=== PATIENT | female | born 1985 | race Caucasian/White ===

== ENCOUNTER 2020-04-22 15:36 | Outpatient (REF) | payer BC, SELFPAY | END 2020-04-22 15:37 | disposition home or self-care (01) | LOC: HO.LAB 15:36 | PROVIDERS: Visit Provider Internal Medicine | DX: Z20.822 Contact with and (suspected) exposure to COVID-19 (principal) | CPT/HCPCS: 36415; C9803; U0003 ==

== ENCOUNTER 2020-04-26 06:56 | Outpatient (REF) | payer BC, SELFPAY | END 2020-04-26 06:57 | disposition home or self-care (01) | LOC: HO.LAB 06:56 | PROVIDERS: PCP Internal Medicine; Visit Provider Internal Medicine | DX: Z20.822 Contact with and (suspected) exposure to COVID-19 (principal) | CPT/HCPCS: 36415; C9803; U0003 ==

== ENCOUNTER 2021-05-01 10:14 | Outpatient (REF) | payer BC, SELFPAY ==
[2021-05-01 10:16] LABS: MANUAL DIFF FLAG NO
[2021-05-01 11:08] LABS: Basophils Absolute Auto 0.1 X10*3/uL (0.0-0.2); Basophils Percent Auto 0.7 % (0-2); Eosinophils Absolute Auto 0.2 X10*3/uL (0.0-0.4); Eosinophils Percent Auto 2.1 % (0-4); Hematocrit 41.8 % (37.0-47.0); Hemoglobin 14.2 g/dl (12.0-16.0); Imm Gran Abs Auto 0.01 X10*3/uL (0.00-0.03); Imm Gran Pct Auto 0.1 % (0.0-0.4); Lymphocytes Percent Auto 53.8 % (20-40); Mean Corpuscular Hemoglobin 30.7 pg (27.0-33.0); Mean Corpuscular Volume 90.3 fL (80.0-98.0); Mean Platelet Volume 9.9 fL (9.4-12.3); Monocytes Absolute Auto 0.7 X10*3/uL (0.1-1.2); Monocytes Percent Auto 9.1 % (2-11); Neutrophils Absolute Auto 2.6 x10*3/uL (2.0-8.3); Neutrophils Percent Auto 34.2 % (45-73); Platelet Count 344 X10*3/uL (160-400); Red Blood Count 4.63 X10*6/uL (4.20-5.50); Red Cell Distribution Width 12.2 % (11.0-16.0); White Blood Count 7.5 X10*3/uL (4.8-10.8)
[2021-05-01 11:14] LABS: Appearance Urine CLEAR; Color Urine YELLOW; Glucose Urine UA NEG (NEG); Leukocyte Esterase Urine NEG (NEG); Nitrite Urine NEG (NEG); Specific Gravity - Urine 1.025 (1.005-1.025); Urine Blood TRACE (NEG); Urine Ketones NEG (NEG); Urine Protein NEG (NEG-TRACE)
[2021-05-01 11:53] LABS: Bacteria Urine 1+ /LPF; Squamous Epithelial Cell Urine 1+ /LPF; WBC Urine 0-2 /HPF (0-4)
[2021-05-01 11:54] LABS: Mucus Urine 1+ /LPF
[2021-05-01 12:51] LABS: Alanine Aminotransferase 15 U/L (0-31); Albumin Level 3.4 g/dL (3.5-5.0); Alkaline Phosphatase 71 U/L (39-117); Anion Gap 14 (12-20); Aspartate Amino Transferase 12 U/L (5-31); Bilirubin Total 0.7 mg/dL (0.0-1.0); Blood Urea Nitrogen 6 mg/dL (9-16); Calcium 8.7 mg/dL (8.4-10.2); Carbon Dioxide 23 mmol/L (22-29); Chloride 105 mmol/L (96-108); Cholesterol 210 mg/dL; Estimated Glomerular Filt Rate > 60; Glucose Fasting 77 mg/dL (60-99); HDL Cholesterol 43 mg/dL; LDL Cholesterol Calculated 143 mg/dl; Potassium 3.4 mmol/L (3.3-5.1); Sodium 139 mmol/L (135-145); Total Protein 6.1 g/dL (6.5-8.0); Triglycerides 122 mg/dL
[2021-05-01 13:22] LABS: Free T4 (Free Thyroxine) 0.83 ng/dL (0.71-1.85)
== END 2021-05-01 10:15 | disposition home or self-care (01) ==
LOC: HO.LNP 10:14
PROVIDERS: PCP Internal Medicine; Visit Provider Internal Medicine
DX: Z00.00 Encounter for general adult medical examination without abnormal findings (principal); R59.1 Generalized enlarged lymph nodes; K58.1 Irritable bowel syndrome with constipation
CPT/HCPCS: 80053; 80061; 81001; 81003; 84439; 84443; 85025

== ENCOUNTER 2021-06-01 11:04 | Outpatient (REF) | payer BC, SELFPAY ==
[2021-06-01 12:39] LABS: TSH reflex Free T4 3.45 uIU/mL (0.32-4.0)
== END 2021-06-01 11:05 | disposition home or self-care (01) ==
LOC: HO.LNP 11:04
PROVIDERS: Visit Provider Internal Medicine
DX: E03.9 Hypothyroidism, unspecified (principal)
CPT/HCPCS: 84443

== ENCOUNTER 2022-02-22 10:34 | Outpatient (REF) | payer BC, SELFPAY ==
[2022-02-22 11:36] LABS: TSH reflex Free T4 3.14 uIU/mL (0.32-4.0)
== END 2022-02-22 10:35 | disposition home or self-care (01) ==
LOC: HO.LNP 10:34
PROVIDERS: Visit Provider Internal Medicine
DX: E03.9 Hypothyroidism, unspecified (principal)
CPT/HCPCS: 84443

== ENCOUNTER 2022-08-17 10:33 | Outpatient (REF) | payer BC, SELFPAY ==
[2022-08-17 10:36] LABS: MANUAL DIFF FLAG NO
[2022-08-17 10:50] LABS: Basophils Absolute Auto 0.1 X10*3/uL (0.0-0.2); Basophils Percent Auto 0.6 % (0-2); Eosinophils Absolute Auto 0.1 X10*3/uL (0.0-0.4); Eosinophils Percent Auto 1.6 % (0-4); Hematocrit 44.1 % (37.0-47.0); Imm Gran Abs Auto 0.02 X10*3/uL (0.00-0.03); Imm Gran Pct Auto 0.3 % (0.0-0.4); Lymphocytes Absolute Auto 3.7 X10*3/uL (1.2-4.9); Lymphocytes Percent Auto 47.5 % (20-40); Mean Corpuscular Hemoglobin 29.9 pg (27.0-33.0); Mean Corpuscular Volume 87.8 fL (80.0-98.0); Mean Platelet Volume 9.4 fL (9.4-12.3); Monocytes Absolute Auto 0.5 X10*3/uL (0.1-1.2); Monocytes Percent Auto 6.2 % (2-11); Neutrophils Absolute Auto 3.4 x10*3/uL (2.0-8.3); Neutrophils Percent Auto 43.8 % (45-73); Platelet Count 353 X10*3/uL (160-400); Red Blood Count 5.02 X10*6/uL (4.20-5.50); Red Cell Distribution Width 12.5 % (11.0-16.0); White Blood Count 7.7 X10*3/uL (4.8-10.8)
[2022-08-17 11:12] LABS: Appearance Urine Clear; Color Urine Yellow; Glucose Urine UA Negative (Negative); Leukocyte Esterase Urine Negative (Negative); Nitrite Urine Negative (Negative); PH 5.5 (5.0-9.0); Specific Gravity - Urine 1.015 (1.005-1.025); UMIC TRIGGER UACC YES; Urine Blood Trace (Negative); Urine Ketones Negative (Negative); Urine Protein Negative (Neg-Trace)
[2022-08-17 11:17] LABS: Alanine Aminotransferase 16 U/L (0-31); Albumin Level 3.5 g/dL (3.5-5.0); Alkaline Phosphatase 68 U/L (39-117); Anion Gap 11 (12-20); Aspartate Amino Transferase 11 U/L (5-31); Bilirubin Total 1.4 mg/dL (0.0-1.0); Blood Urea Nitrogen 6 mg/dL (9-16); Calcium 8.7 mg/dL (8.4-10.2); Carbon Dioxide 24 mmol/L (22-29); Chloride 108 mmol/L (96-108); Cholesterol 226 mg/dL; Estimated Glomerular Filt Rate > 60; Glucose Fasting 88 mg/dL (60-99); HDL Cholesterol 46 mg/dL; LDL Cholesterol Calculated 161 mg/dl; Potassium 3.8 mmol/L (3.3-5.1); Sodium 139 mmol/L (135-145); Total Protein 6.2 g/dL (6.5-8.0); Triglycerides 96 mg/dL
[2022-08-17 11:19] LABS: Bacteria Urine 1+ (None Seen); Hyaline Casts Urine 0-2 /LPF (0-2); WBC Urine 0-5 /HPF (0-5)
[2022-08-17 11:31] LABS: TSH reflex Free T4 4.84 uIU/mL (0.32-4.0)
== END 2022-08-17 10:34 | disposition home or self-care (01) ==
LOC: HO.LNP 10:33
PROVIDERS: PCP Internal Medicine; Visit Provider Internal Medicine
DX: Z00.00 Encounter for general adult medical examination without abnormal findings (principal); E03.9 Hypothyroidism, unspecified; D72.820 Lymphocytosis (symptomatic)
CPT/HCPCS: 80053; 80061; 81001; 84439; 84443; 85025

== ENCOUNTER 2022-08-21 15:13 | Outpatient (REF) | payer BC, SELFPAY ==
[2022-08-21 15:41] LABS: Appearance Urine Clear; Color Urine Yellow; Glucose Urine UA Negative (Negative); Leukocyte Esterase Urine Negative (Negative); Nitrite Urine Negative (Negative); PH 5.5 (5.0-9.0); UMIC TRIGGER UACC YES; Urine Blood Trace (Negative); Urine Ketones Negative (Negative); Urine Protein Negative (Neg-Trace)
[2022-08-21 15:46] LABS: Bacteria Urine None Seen (None Seen); Hyaline Casts Urine 0-2 /LPF (0-2); RBC Urine 0-2 /HPF (0-2); Squamous Epithelial Cell Urine 0-2 /HPF (0-2); WBC Urine 0-5 /HPF (0-5)
== END 2022-08-21 15:14 | disposition home or self-care (01) ==
LOC: HO.LNP 15:13
PROVIDERS: Visit Provider Internal Medicine
DX: R31.9 Hematuria, unspecified (principal)
CPT/HCPCS: 81001

== ENCOUNTER 2022-11-09 13:22 | Outpatient (REF) | payer BC, SELFPAY ==
[2022-11-09 15:16] LABS: TSH reflex Free T4 1.95 uIU/mL (0.32-4.0)
== END 2022-11-09 13:23 | disposition home or self-care (01) ==
LOC: HO.LNP 13:22
PROVIDERS: Visit Provider Internal Medicine
DX: E03.9 Hypothyroidism, unspecified (principal)
CPT/HCPCS: 84443

== ENCOUNTER 2023-02-09 17:52 | Emergency (ER) | payer BC, SELFPAY ==
--- NOTE | ~2023-02-09 | CT_ITS ---
EXAMINATION: CT HEAD WITHOUT CONTRAST CLINICAL INFORMATION: Headache unequal pupils COMPARISON: CT scan of the head July 2012. Report only. TECHNIQUE: Contiguous axial imaging was performed from the skull base to vertex without intravenous administration of contrast. This CT examination was performed using dose optimization techniques as appropriate, variously including the following: *Automated exposure control *Adjustment of mA and/or kV according to patient size (this includes techniques or standardized protocols for targeted exams where dose is matched to indication/reason for exam; i.e. extremities or head) *Use of iterative reconstruction technique DLP: 620 mGy-cm FINDINGS: There is no mass hemorrhage or cerebral edema. The ventricles and basal cisterns are normal. Soft tissues: Normal. Bone: There is a osseous excrescence along the left frontal bone measuring up to 9 mm transverse and 3 mm AP and 10 mm craniocaudal. This has the appearance of an osteoma. Sinuses clear. Mastoid air cells clear. CT/CT head/brain wo IV con IMPRESSION: 1. No acute intracranial pathology. 2. Osteoma of the left frontal bone.
--- NOTE | ~2023-02-09 | CT_ITS ---
EXAMINATION: CT ANGIOGRAM NECK CT ANGIOGRAM HEAD CLINICAL INFORMATION: Headache. Unequal pupils. COMPARISON: None available. TECHNIQUE: The degree of stenosis determined by NASCET criteria. This CT examination was performed using dose optimization techniques as appropriate, variously including the following: *Automated exposure control *Adjustment of mA and/or kV according to patient size (this includes techniques or standardized protocols for targeted exams where dose is matched to indication/reason for exam; i.e. extremities or head) *Use of iterative reconstruction technique DLP: 1429 mGy-cm FINDINGS: The visualized aortic arch and branch vessels are within normal limits. The carotid, internal carotid and external carotid arteries are patent. The vertebral arteries are codominant. The vertebral arteries are patent. The intracranial internal carotid arteries, middle and anterior cerebral arteries as well as posterior cerebral arteries are patent. No evidence for aneurysm. The visualized upper lung muhammad are clear. The osseous structures are unremarkable. CT/CT angio head neck IMPRESSION: No significant abnormality.
[2023-02-09 17:58] VITALS: BP 126/80; PULSE 90; RESP 16; TEMP 36; O2SAT 97; BMI 28.3
--- NOTE | 2023-02-09 18:01 | ED_ITS ---
HPI - General Adult General Chief complaint: Headache Stated complaint: Headache, allergic reaction (?) Time Seen by Provider: 02/09/23 18:16 Related Data Allergies Allergy/AdvReac Type Severity Reaction Status Date / Time No Known Allergies Allergy Verified 02/09/23 17:58 [facility] Past Medical History Medical History (Updated 02/09/23 @ 18:30 by Lissa Peralta MD) ADHD Hypothyroidism Social History Social History Smoked in Last 30 Days: No Use of substances other than those prescribed or required for medical reasons: No Advance Directives: No Advance Directives Information Provided: No Physical Exam ED Vital Signs: Vital Signs - 24 hr 02/09/23 17:58 02/09/23 19:04 02/09/23 22:58 Temperature 96.8 F 98.4 F 98.3 F Pulse Rate 90 84 Respiratory Rate 16 16 14 Blood Pressure 126/80 125/82 125/86 Pulse Oximetry 97 98 Oxygen Delivery Method Room Air Room Air Room Air 02/10/23 01:30 EDT Temperature 98.3 F Pulse Rate 66 Respiratory Rate 14 Blood Pressure 115/77 Pulse Oximetry 97 Oxygen Delivery Method Room Air BMI result Body Mass Index 28.3 Course Course Course Narrative: Patient complains of headache as well as noticing that her pupils are not equal for past several days She does feel some occasional chest tightness, she is being treated with prednisone and Zithromax for a bronchitis At home she has had no chest pain no vomiting no nausea Pupils are reactive but are obviously not equal Head CT COVID testing and basic labs ordered This is rapid medical exam and triage pending full ER evaluation by provider with history and physical review of any results and disposition Medications Administered Discontinued Medications Generic Name Dose Route Start Last Admin Trade Name Triny PRN Reason Stop Dose Admin Iohexol 100 ml 02/09/23 22:41 02/09/23 22:42 Iohexol 350 Mg/Ml 100 Ml Infus..Btl IV 02/09/23 22:42 70 ml ONCE ONE Administration Medical Decision Making Lab Data 02/09/23 18:14 02/09/23 18:14 Labs: Lab Results 02/09/23 02/10/23 Range/Units 18:14 00:24 WBC 9.5 (4.8-10.8) X10*3/uL RBC 5.00 (4.20-5.50) X10*6/uL Hgb 15.0 (12.0-16.0) g/dl Hct 43.4 (37.0-47.0) % MCV 86.8 (80.0-98.0) fL MCH 30.0 (27.0-33.0) pg MCHC 34.6 (31.0-35.0) g/dl RDW 12.1 (11.0-16.0) % Plt Count 381 (160-400) X10*3/uL MPV 8.7 L (9.4-12.3) fL Immature Gran % (Auto) 0.9 H (0.0-0.4) % Neut % (Auto) 81.0 H (45-73) % Lymph % (Auto) 16.6 L (20-40) % [place] % (Auto) 1.3 L (2-11) % Eos % (Auto) 0.0 (0-4) % Baso % (Auto) 0.2 (0-2) % Lymph # (Auto) 1.6 (1.2-4.9) X10*3/uL [place] # (Auto) 0.1 (0.1-1.2) X10*3/uL Eos # (Auto) 0.0 (0.0-0.4) X10*3/uL Baso # (Auto) 0.0 (0.0-0.2) X10*3/uL Abs Immat Gran (auto) 0.09 H (0.00-0.03) X10*3/uL Absolute Neuts (auto) 7.7 (2.0-8.3) x10*3/uL Absolute Nucleated RBC 0.000 (0.0-0.012) X10*3/uL Nucleated RBC % (auto) 0.0 (0.0-0.2) /100WBC PT 12.3 (11.1-13.3) SEC INR 1.0 (0.9-1.1) Sodium 139 (135-145) mmol/L Potassium 4.4 (3.3-5.1) mmol/L Chloride 104 (96-108) mmol/L Carbon Dioxide 26 (22-29) mmol/L Anion Gap 13 (12-20) BUN 9 (9-16) mg/dL Creatinine 0.91 (0.5-1.4) mg/dL Estim Creat Clear Calc 77.7 Estimated GFR > 60 Random Glucose 155 H (60-115) mg/dL Calcium 9.1 (8.4-10.2) mg/dL Urine Test NEGATIVE (NEGATIVE) Urine Opiates Screen Not Detected (Not Detect) Urine Fentanyl Screen Not Detected (Not Detect) Ur Barbiturates Screen Not Detected (Not Detect) Ur Phencyclidine Scrn Not Detected (Not Detect) Ur Amphetamines Screen POSITIVE H (Not Detect) U Benzodiazepines Scrn Not Detected (Not Detect) Urine Cocaine Screen Not Detected (Not Detect) U Marijuana (THC) Screen POSITIVE H (Not Detect)
[2023-02-09 18:18] LABS: MANUAL DIFF FLAG NO
[2023-02-09 18:20] LABS: Basophils Percent Auto 0.2 % (0-2); Hematocrit 43.4 % (37.0-47.0); Imm Gran Abs Auto 0.09 X10*3/uL (0.00-0.03); Imm Gran Pct Auto 0.9 % (0.0-0.4); Lymphocytes Absolute Auto 1.6 X10*3/uL (1.2-4.9); Lymphocytes Percent Auto 16.6 % (20-40); Mean Corpuscular HGB Conc 34.6 g/dl (31.0-35.0); Mean Corpuscular Volume 86.8 fL (80.0-98.0); Mean Platelet Volume 8.7 fL (9.4-12.3); Monocytes Absolute Auto 0.1 X10*3/uL (0.1-1.2); Monocytes Percent Auto 1.3 % (2-11); Neutrophils Absolute Auto 7.7 x10*3/uL (2.0-8.3); Platelet Count 381 X10*3/uL (160-400); Red Cell Distribution Width 12.1 % (11.0-16.0); White Blood Count 9.5 X10*3/uL (4.8-10.8)
--- NOTE | 2023-02-09 18:24 | ED.HA ---
HPI - Headache General Chief Complaint: Headache Stated Complaint: Headache, allergic reaction (?) Time Seen by Provider: 02/09/23 18:16 Source: patient Mode of arrival: ambulatory Limitations: no limitations History of Present Illness HPI Narrative: Patient comes to the emergency room complaining of unequal pupils. Patient states that for about 3 weeks, she has been having stuffy nose, sinus pain, patient has been on a Z-Paolo and prednisone for about 5 days. Patient states that she went to work today, she did have a bit of a headache. Took Advil, did not think much of it. At work, the patient's co-workers told the patient that she had unequal pupils. Patient noted that the right pupil is significantly larger than the left pupil, patient denies any visual changes, patient came immediately to the emergency room. Related Data Allergies Allergy/AdvReac Type Severity Reaction Status Date / Time No Known Allergies Allergy Verified 02/09/23 17:58 Review of Systems Review of Systems: Constitutional : No Weight loss, No Fever, No Chills, No Night Sweats, No Fatigue, No Malaise ENT/Mouth : No Hearing loss, No Ear Pain, No Nasal Congestion, No Sinus Pain, No Hoarseness, No sore throat, No Rhinorrhea, No Swallowing Difficulty Eyes: Complaining of unequal pupil size, No Eye Pain, No Swelling, No Redness, No Foreign Body, No Discharge, No Vision Changes Cardiovascular : No Chest Pain, No SOB, No Dyspnea on Exertion, No Orthopnea, No Edema, No Palpitations Respiratory : No Cough, No Sputum, No Wheezing, No Smoke Exposure, No Dyspnea Gastrointestinal : No Nausea, No Vomiting, No Diarrhea, No Constipation, No abdominal Pain, No Hematochezia, No Melena Genitourinary : no irregular bleeding, No Dysuria, No Urinary Frequency, No Hematuria, No Urinary Incontinence, No Urgency, No Flank Pain, No Urinary Flow Changes, No Hesitancy Musculoskeletal : No joint pain, No Myalgias, No Joint Swelling Skin : No Skin Lesions, No rash Neuro : No Weakness, No Numbness, No Paresthesias, No Loss of Consciousness, No Dizziness, complaining of a headache Psych : No Anxiety/Panic, No Depression, No SI/HI/AH/VH, No Social Issues, Heme/Lymph: No Bruising, No Bleeding,No Lymphadenopathy Endocrine : No Polyuria, No Polydipsia, No Temperature Intolerance [facility] Past Medical History Medical History (Updated 02/10/23 @ 01:58 EDT by Lissa Peralta MD) ADHD Hypothyroidism Social History Social History Smoked in Last 30 Days: No Use of substances other than those prescribed or required for medical reasons: No Advance Directives: No Advance Directives Information Provided: No Physical Exam Vital Signs: Vital Signs: Last Vital Signs Temp 98.3 F 02/10/23 01:30 ED T Pulse 66 02/10/23 01:30 ED T Resp 14 02/10/23 01:30 ED T BP 115/77 02/10/23 01:30 ED T Pulse Ox 97 02/10/23 01:30 ED T O2 Del Method Room Air 02/10/23 01:30 ED T BMI result Body Mass Index 28.3 Const: Other: Appearance: Alert. Oriented X3. No acute distress. Eyes: Right pupil is 6 mm, left pupil 2 mm. Both pupils are reactive to light, patient has appropriate consensual pupillary reflex, no ptosis bilaterally ENT: Pharynx normal. Neck: Normal inspection. Neck supple. No lymph nodes noted. No crepitus CVS: Normal heart rate and rhythm. Pulses normal. Normal S1 and S2 Respiratory: No respiratory distress. Breath sounds normal. No Wheezing. No rales Abdomen: Soft and nontender. No rigidity. No distention. Skin: Skin warm and dry. Normal skin color. Normal skin turgor. Extremities: No lower extremity edema. No Lacerations. No Rash Neuro: Oriented X 3. No motor deficit. No sensory deficit. Moving all extremities. No slurred speech. CN 2 through 12 grossly intact Psych: calm, cooperative, normal affect Medications Administered Discontinued Medications Generic Name Dose Route Start Last Admin Trade Name Phillq PRN Reason Stop Dose Admin Iohexol 100 ml 02/09/23 22:41 02/09/23 22:42 Iohexol 350 Mg/Ml 100 Ml Infus..Btl IV 02/09/23 22:42 70 ml ONCE ONE Administration Medical Decision Making Medical Decision Making MDM Narrative: -interpretation of CT scan of the head: No intracranial bleed -I discussed the CT scan report with Dr. Salcedo from Neurology. Patient does not have ptosis,, no obvious history of ocular trauma, no topical medications no use of drugs, no other neurological deficits. When anisocoria presented, the patient was having a headache. At this time, patient does not have a headache, but still has unequal pupils. Recommendations by Dr. Salcedo: CT angiogram of brain and neck to rule out aneurysm. If CTA is normal, patient can follow up with Neurology and Ophthalmology. -interpretation of CTA of head and neck, no obvious obstruction or aneurysms -radiology report of CT is reassuring -I discussed the CTA results with the patient and her family, patient will follow-up as mentioned above with both Neurology and Ophthalmology -patient states that only thing that she can remember that is new is using prednisone with a Z-Paolo. Patient has had see PAC in the past but never prednisone. Patient will discontinue using prednisone -by the time the patient was discharged, all other vitals stable. The anisocoria is less obvious than on arrival. Right pupil is about 4 mm, left pupil 2 mm, both reactive to light, normal consensual pupillary reflex Differential Diagnosis Differential Diagnoses: The differential diagnosis associated with the presentation includes (Aneurysm, brain mass, pharmacologic anisocoria, Yeyo syndrome) Admission/Observation Consideration of admission/observation: Escalation of care including admission/observation considered (Given the patient's presentation, admission/transfer was considered) Consult Healthcare Provider Management of the patient was discussed with: [employer] Lab Data MDM Lab Attestation statement: I reviewed the patient's lab results. 02/09/23 18:14 02/09/23 18:14 Labs: Lab Results 02/09/23 02/10/23 Range/Units 18:14 00:24 WBC 9.5 (4.8-10.8) X10*3/uL RBC 5.00 (4.20-5.50) X10*6/uL Hgb 15.0 (12.0-16.0) g/dl Hct 43.4 (37.0-47.0) % MCV 86.8 (80.0-98.0) fL MCH 30.0 (27.0-33.0) pg MCHC 34.6 (31.0-35.0) g/dl RDW 12.1 (11.0-16.0) % Plt Count 381 (160-400) X10*3/uL MPV 8.7 L (9.4-12.3) fL Immature Gran % (Auto) 0.9 H (0.0-0.4) % Neut % (Auto) 81.0 H (45-73) % Lymph % (Auto) 16.6 L (20-40) % [place] % (Auto) 1.3 L (2-11) % Eos % (Auto) 0.0 (0-4) % Baso % (Auto) 0.2 (0-2) % Lymph # (Auto) 1.6 (1.2-4.9) X10*3/uL [place] # (Auto) 0.1 (0.1-1.2) X10*3/uL Eos # (Auto) 0.0 (0.0-0.4) X10*3/uL Baso # (Auto) 0.0 (0.0-0.2) X10*3/uL Abs Immat Gran (auto) 0.09 H (0.00-0.03) X10*3/uL Absolute Neuts (auto) 7.7 (2.0-8.3) x10*3/uL Absolute Nucleated RBC 0.000 (0.0-0.012) X10*3/uL Nucleated RBC % (auto) 0.0 (0.0-0.2) /100WBC PT 12.3 (11.1-13.3) SEC INR 1.0 (0.9-1.1) Sodium 139 (135-145) mmol/L Potassium 4.4 (3.3-5.1) mmol/L Chloride 104 (96-108) mmol/L Carbon Dioxide 26 (22-29) mmol/L Anion Gap 13 (12-20) BUN 9 (9-16) mg/dL Creatinine 0.91 (0.5-1.4) mg/dL Estim Creat Clear Calc 77.7 Estimated GFR > 60 Random Glucose 155 H (60-115) mg/dL Calcium 9.1 (8.4-10.2) mg/dL Urine Test NEGATIVE (NEGATIVE) Urine Opiates Screen Not Detected (Not Detect) Urine Fentanyl Screen Not Detected (Not Detect) Ur Barbiturates Screen Not Detected (Not Detect) Ur Phencyclidine Scrn Not Detected (Not Detect) Ur Amphetamines Screen POSITIVE H (Not Detect) U Benzodiazepines Scrn Not Detected (Not Detect) Urine Cocaine Screen Not Detected (Not Detect) U Marijuana (THC) Screen POSITIVE H (Not Detect) Discharge Plan Discharge Clinical Impression: Headache, Anisocoria Patient Disposition: Home, Self-Care Instructions: Acute Headache (ED) Additional Instructions: Please follow-up with your primary care physician tomorrow. If you have any worsening or new symptoms, please return to the emergency room or call 911 Referrals: Israel Emery [Physician] - 02/11/23 7:30 am Dena Salcedo MD [Physician] - 02/11/23
[2023-02-09 18:25] LABS: Prothrombin Time 12.3 SEC (11.1-13.3)
[2023-02-09 18:32] LABS: Anion Gap 13 (12-20); Blood Urea Nitrogen 9 mg/dL (9-16); Calcium 9.1 mg/dL (8.4-10.2); Carbon Dioxide 26 mmol/L (22-29); Chloride 104 mmol/L (96-108); Creatinine Clr Calc Pharmacy 77.7; Estimated Glomerular Filt Rate > 60; Glucose Random 155 mg/dL (60-115); Potassium 4.4 mmol/L (3.3-5.1); Sodium 139 mmol/L (135-145)
[2023-02-09 19:04] VITALS: BP 125/82; PULSE 84; RESP 16; TEMP 36.9; O2SAT 98
--- NOTE | 2023-02-09 19:30 | PC.NURSE ---
this rn assumed care of pt at 1900. pt family member at bedside at this time. pt calm and cooperative
[2023-02-09] MEDS: iohexoL 350 MG/ML 100 ML INFUS..BTL IV (22:42)
[2023-02-09 22:58] VITALS: BP 125/86; RESP 14; TEMP 36.8
[2023-02-10 00:41] LABS: Amphetamine Screen Urine POSITIVE (Not Detect); Barbiturates, Urine Not Detected (Not Detect); Benzodiazepines Screen Urine Not Detected (Not Detect); Cannabinoid Screen Urine POSITIVE (Not Detect); Cocaine Screen Urine Not Detected (Not Detect); Fentanyl, urine Not Detected (Not Detect); Opiate Screen Urine Not Detected (Not Detect); Phencyclidine Screen Urine Not Detected (Not Detect)
[2023-02-10 00:50] LABS: UPreg QC Valid YES; Urine Pregnancy NEGATIVE (NEGATIVE)
--- NOTE | 2023-02-10 01:09 | PC.NURSE ---
pt and family member verbalizing frustration regarding length of stay in emergency dept. pt remains calm and cooperative though visitor noted to be frustrated due to the delay in results from CTA. per dr staples radiologist from [facility] reading will take 2-4hrs from time of scan. this rn made pt aware of this. pt remains frustrated though calm pt provided with bo schulz at this time
--- NOTE | 2023-02-10 01:16 | PC.NURSE ---
pt ambulatory at discharge. iv removed at discharge. pt provided with discharge packet, pt verbalized understanding of discharge plan
[2023-02-10 01:30] VITALS: BP 115/77; PULSE 66; RESP 14; TEMP 36.8; O2SAT 97
== END 2023-02-10 01:18 | disposition home or self-care (01) ==
PROVIDERS: Physician Assistant Medical; Emergency Provider Emergency Medicine
DX: R51.9 Headache, unspecified (principal); H57.02 Anisocoria; F90.9 Attention-deficit hyperactivity disorder, unspecified type; E03.9 Hypothyroidism, unspecified; Z79.899 Other long term (current) drug therapy
CPT/HCPCS: 36415; 70450; 70496; 70498; 80048; 80307; 81025; 85025; 85610; 99284; Q9967

== ENCOUNTER 2023-02-14 08:55 | Outpatient (REF) | payer BC, SELFPAY ==
--- NOTE | ~2023-02-14 | XR_ITS ---
EXAMINATION: XR CHEST CLINICAL INFORMATION: Anisocoria COMPARISON: None available. TECHNIQUE: 2 views of the chest were obtained. 9:05 AM FINDINGS: No significant abnormality is noted involving the heart, lungs, mediastinum, bony thorax or soft tissues. XR/XR chest 2V IMPRESSION: Unremarkable examination.
== END 2023-02-14 08:56 | disposition home or self-care (01) ==
LOC: HO.XRAY 08:55
PROVIDERS: PCP Internal Medicine; Visit Provider Internal Medicine
DX: H57.02 Anisocoria (principal)
CPT/HCPCS: 71046

== ENCOUNTER 2023-05-06 10:41 | Outpatient (REF) | payer BC, SELFPAY ==
[2023-05-06 13:19] LABS: TSH reflex Free T4 1.75 uIU/mL (0.32-4.0)
== END 2023-05-06 10:42 | disposition home or self-care (01) ==
LOC: HO.LNP 10:41
PROVIDERS: Visit Provider Internal Medicine
DX: E03.9 Hypothyroidism, unspecified (principal)
CPT/HCPCS: 84443

== ENCOUNTER 2023-08-19 10:44 | Outpatient (REF) | payer BC, SELFPAY ==
[2023-08-19 10:47] LABS: MANUAL DIFF FLAG NO
[2023-08-19 11:06] LABS: Basophils Absolute Auto 0.1 X10*3/uL (0.0-0.2); Basophils Percent Auto 0.5 % (0-2); Eosinophils Absolute Auto 0.2 X10*3/uL (0.0-0.4); Eosinophils Percent Auto 2.2 % (0-4); Hematocrit 42.7 % (37.0-47.0); Hemoglobin 14.6 g/dl (12.0-16.0); Imm Gran Abs Auto 0.03 X10*3/uL (0.00-0.03); Imm Gran Pct Auto 0.3 % (0.0-0.4); Lymphocytes Absolute Auto 4.3 X10*3/uL (1.2-4.9); Lymphocytes Percent Auto 47.1 % (20-40); Mean Corpuscular HGB Conc 34.2 g/dl (31.0-35.0); Mean Corpuscular Hemoglobin 31.3 pg (27.0-33.0); Mean Corpuscular Volume 91.4 fL (80.0-98.0); Mean Platelet Volume 9.1 fL (9.4-12.3); Monocytes Absolute Auto 0.8 X10*3/uL (0.1-1.2); Monocytes Percent Auto 8.2 % (2-11); Neutrophils Absolute Auto 3.8 x10*3/uL (2.0-8.3); Neutrophils Percent Auto 41.7 % (45-73); Platelet Count 474 X10*3/uL (160-400); Red Blood Count 4.67 X10*6/uL (4.20-5.50); Red Cell Distribution Width 12.6 % (11.0-16.0); White Blood Count 9.2 X10*3/uL (4.8-10.8)
[2023-08-19 11:33] LABS: Alanine Aminotransferase 17 U/L (0-31); Albumin Level 3.6 g/dL (3.5-5.0); Alkaline Phosphatase 74 U/L (39-117); Anion Gap 17 (12-20); Aspartate Amino Transferase 14 U/L (5-31); Bilirubin Total 0.7 mg/dL (0.0-1.0); Blood Urea Nitrogen 8 mg/dL (9-16); Calcium 8.9 mg/dL (8.4-10.2); Carbon Dioxide 22 mmol/L (22-29); Chloride 106 mmol/L (96-108); Cholesterol 223 mg/dL (<200); Estimated Glomerular Filt Rate > 60; Glucose Fasting 86 mg/dL (60-99); HDL Cholesterol 46 mg/dL (>40); LDL Cholesterol Calculated 155 mg/dL (<100); Potassium 3.5 mmol/L (3.3-5.1); Sodium 141 mmol/L (135-145); Total Protein 6.9 g/dL (6.5-8.0); Triglycerides 110 mg/dL (<150)
[2023-08-19 11:56] LABS: TSH reflex Free T4 2.74 uIU/mL (0.32-4.0)
== END 2023-08-19 10:45 | disposition home or self-care (01) ==
LOC: HO.LNP 10:44
PROVIDERS: Visit Provider Internal Medicine
DX: Z00.00 Encounter for general adult medical examination without abnormal findings (principal); E03.9 Hypothyroidism, unspecified; D72.820 Lymphocytosis (symptomatic)
CPT/HCPCS: 80053; 80061; 84443; 85025

== ENCOUNTER 2024-08-25 07:00 | Outpatient (REF) | payer BC, SELFPAY ==
[2024-08-25 11:50] LABS: MANUAL DIFF FLAG NO
[2024-08-25 12:16] LABS: Basophils Absolute Auto 0.1 X10*3/uL (0.0-0.2); Basophils Percent Auto 0.9 % (0-2); Eosinophils Absolute Auto 0.2 X10*3/uL (0.0-0.4); Eosinophils Percent Auto 2.3 % (0-4); Hematocrit 43.4 % (37.0-47.0); Hemoglobin 14.8 g/dl (12.0-16.0); Imm Gran Abs Auto 0.01 X10*3/uL (0.00-0.03); Imm Gran Pct Auto 0.1 % (0.0-0.4); Lymphocytes Absolute Auto 3.3 X10*3/uL (1.2-4.9); Lymphocytes Percent Auto 47.5 % (20-40); Mean Corpuscular HGB Conc 34.1 g/dl (31.0-35.0); Mean Corpuscular Volume 90.8 fL (80.0-98.0); Mean Platelet Volume 10.1 fL (9.4-12.3); Monocytes Absolute Auto 0.5 X10*3/uL (0.1-1.2); Monocytes Percent Auto 6.8 % (2-11); Neutrophils Absolute Auto 2.9 x10*3/uL (2.0-8.3); Neutrophils Percent Auto 42.4 % (45-73); Platelet Count 390 X10*3/uL (160-400); Red Blood Count 4.78 X10*6/uL (4.20-5.50); Red Cell Distribution Width 12.8 % (11.0-16.0); White Blood Count 6.9 X10*3/uL (4.8-10.8)
[2024-08-25 12:19] LABS: Appearance Urine Clear; Color Urine Yellow; Glucose Urine UA Negative (Negative); Leukocyte Esterase Urine Trace (Negative); Nitrite Urine Negative (Negative); PH 5.5 (5.0-9.0); UMIC TRIGGER UACC YES; Urine Blood Trace (Negative); Urine Ketones 40 mg/dL (Negative); Urine Protein Negative (Neg-Trace)
[2024-08-25 12:23] LABS: Bacteria Urine 1+ (None Seen); Hyaline Casts Urine 0-2 /LPF (0-2); WBC Urine 0-5 /HPF (0-5)
[2024-08-25 12:48] LABS: Alanine Aminotransferase 27 U/L (0-31); Albumin Level 3.6 g/dL (3.5-5.0); Alkaline Phosphatase 63 U/L (39-117); Anion Gap 10 (12-20); Aspartate Amino Transferase 21 U/L (5-31); Bilirubin Total 1.2 mg/dL (0.0-1.0); Blood Urea Nitrogen 9 mg/dL (9-16); Carbon Dioxide 24 mmol/L (22-29); Chloride 107 mmol/L (96-108); Cholesterol 211 mg/dL (<200); Estimated Glomerular Filt Rate > 60; Glucose Random 81 mg/dL (60-115); HDL Cholesterol 47 mg/dL (>40); LDL Cholesterol Calculated 143 mg/dL (<100); Potassium 3.7 mmol/L (3.3-5.1); Sodium 137 mmol/L (135-145); Total Protein 6.8 g/dL (6.5-8.0); Triglycerides 107 mg/dL (<150)
--- OUTSIDE RECORDS SUMMARY | 2024-08-25 12:56 | XMS_ITS | Patient Health Record ---
Author Organization James Badillo MD Address [address] [place], [place] [id number] Care Team Providers Care Equipment Worker Name Role Phone James Badillo Primary Care Provider Allergies Allergen (clinical drug ingredient) Drug/Non Drug Allergy documented on EMR Reaction Allergy Type Onset Date Status short acting generic adderall (uncoded) throat swelling Allergy Active Results Component Value Reference Range Notes Complete Blood Count Auto Di ff Reviewed date:08/25/2024 12:52:13 PM Interpretation: Performing Lab:[facility], [address] [place] [phone] Notes/Report: White Blood Count 6.9 4.8-10.8 X10*3/uL Red Blood Count 4.78 4.20-5.50 X10*6/uL Hemoglobin 14.8 12.0-16.0 g/dl Hematocrit 43.4 37.0-47.0 % Mean Corpuscular Volume 90.8 80.0-98.0 fL Mean Corpuscular Hemoglobin 31.0 27.0-33.0 pg Mean Corpuscular HGB Conc 34.1 31.0-35.0 g/dl Red Cell Distribution Width 12.8 11.0-16.0 % Platelet Count 390 160-400 X10*3/uL Mean Platelet Volume 10.1 9.4-12.3 fL Neutrophils Percent Auto 42.4 45-73 % Imm Gran Pct Auto 0.1 0.0-0.4 % Lymphocytes Percent Auto 47.5 20-40 % Monocytes Percent Auto 6.8 2-11 % Eosinophils Percent Auto 2.3 0-4 % Basophils Percent Auto 0.9 0-2 % NRBC Pct Auto 0.0 0.0-0.2 /100WBC Neutrophils Absolute Auto 2.9 2.0-8.3 x10*3/u L Imm Gran Abs Auto 0.01 0.00-0.03 X10*3/uL Lymphocytes Absolute Auto 3.3 1.2-4.9 X10*3/u L Monocytes Absolute Auto 0.5 0.1-1.2 X10*3/uL Eosinophils Absolute Auto 0.2 0.0-0.4 X10*3/u L Basophils Absolute Auto 0.1 0.0-0.2 X10*3/uL NRBC Abs Auto 0.000 0.0-0.012 X10*3/uL UA ClnCatch+Micro w/rflx Cul t (Not yet reviewed by provider) Interpretation: Performing Lab:[facility], [address] [place] [phone] Notes/Report: Urine, Clean Catch Color Urine Yellow Appearance Urine Clear PH 5.5 5.0-9.0 Glucose Urine UA Negative Negative mg/dL Urine Blood Trace Negative Specific [place] - Urine 1.020 1.005-1.025 Urine Protein Negative Neg-Trace mg/dL Urine Ketones 40 Negative mg/dL Nitrite Urine Negative Negative Leukocyte Esterase Urine Trace Negative RBC Urine 3-5 0-2 /HPF WBC Urine 0-5 0-5 /HPF Squamous Epithelial Cell Urine 3-5 0-2 /HPF Bacteria Urine 1+ None Seen Hyaline Casts Urine 0-2 0-2 /LPF Reason For Referral No Information Medications Medication SIG (Take, Route, Frequency, Duration) Notes Start Date End Date Status Zithromax Z-Paolo 250 MG 2 tablet on the f irst day, then 1 tablet daily for 4 days Orally Once a day for 5 day(s) 02/05/2023 Not-Taking Benzonatate 100 MG 1 capsule as needed Orally Three times a day Not-Taking predniSONE 10 MG 1 tablet with food o r milk Orally 4 tabs for 3 days,3tabs for 3 days, 2 tabs for 3 days, and 1 tab for 3 days for 14 days 02/05/2023 Not-Taking Scopolamine 1 MG/3DAYS 1 patch to skin b ehind the ear as needed Transdermal every 3 days for 30 days 07/13/2024 Active Wellbutrin XL 300 MG 1 tablet in the morning Orally Once a day for 30 day(s) Not-Taking Linzess 72 MCG TAKE 1 CAPSULE BY MOUTH EVERY DAY 30 MINUTES BEFORE THE FIRST MEAL OF THE DAY ON EMPTY STOMACH Active Cyclobenzaprine HCl 5 MG 1 tablet Orally twice a day as needed for 10 days 07/13/2024 Active ProAir HFA 108 (90 Base) MCG/ACT 2 puffs as needed Inhalation every 4 hrs 02/12/2017 Active Levothyroxine Sodium 50 MCG TAKE 1 TABLET BY MOUTH EVERY DAY IN THE MORNING ON EMPTY STOMACH for 90 Active Adderall XR 30 MG 1 capsule every morning Orally Once a day Active Seasonale 0.15-0.03 MG 1 tablet Orally O nce a day for 91 day(s) Active Ventolin HFA 108 (90 Base) MCG/ACT 2 puffs as needed Inhalation every 4 hrs for 30 days 04/22/2015 Not-Taking Nortriptyline HCl 10 MG/5ML 5 mL at bedtime Orally Once a day Active Wellbutrin XL 150 MG 1 tablet in the morning Orally Once a day for 30 day(s) Not-Taking Meloxicam 15 MG TAKE 1 TABLET BY LAURIE TH EVERY DAY FOR 30 DAYS for 30 Active Adderall 10 MG 1 tablet in the morning Orally Once a day Not-Taking Immunizations Vaccine Route Administration Date Status Comme nts Fluarix Quadrivalent IM Intramuscular 01/31/2015 Adminrustester red Fluarix Quadrivalent IM Intramuscular 01/13/2016 Adminhao murray pt was given the vaccine at [facility] in [place]. Flu Vaccine Unknown 01/23/2017 Administered given at [facility] Fluarix Quadrivalent Unknown 02/18/2018 Administered S Fluarix Quadrivalent IM Intramuscular 01/20/2019 Adminhao murray pt was given the vaccine at [facility] in [place]. Fluarix Quadrivalent Unknown 12/31/2019 Administered CV S SARS-COV-2 Moderna Unknown 07/21/2020 Administered SARS-COV-2 Moderna Unknown 08/15/2020 Administered SARS-COV-2 Moderna Unknown 04/27/2021 Administered Fluarix Quadrivalent Unknown 01/20/2021 Administered Fluarix Quadrivalent Unknown 02/21/2022 Administered CV S DECLINED, FLU Unknown 12/31/2013 Refused Social History Tobacco Use: Social History Observation Description Date Details (start date - stop date) Former Smoker NA - NA Tobacco Use/Smoking Question Answer Notes Patient is a former smoker How long has it been since y ou last smoked? 1-5 years Additional Findings: Tobacco Non-User Fo rmer smoker, currently using no form of tobacco Alcohol Screen Question Answer Notes Did you have a drink contain ing alcohol in the past year? Yes How often did you have a dri nk containing alcohol in the past year? Monthly or less (1 point) How many drinks did you have on a typical day when you were drinking in the past year? 1 or 2 drinks (0 point) How often did you have 6 or more drinks on one occasion in the past year? Never (0 point) Points 1 Interpretation Negative Section Notes: Patient states stopped drink ing 6 months ago due to the nauseau , but before that was drinking everyday . Patient states stopped drink ing 6 months ago due to the nauseau , but before that was drinking everyday . Patient states stopped drink ing 6 months ago due to the nauseau , but before that was drinking everyday . Patient states stopped drink ing 6 months ago due to the nauseau , but before that was drinking everyday . Patient states stopped drink ing 6 months ago due to the nauseau , but before that was drinking everyday . 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) Active confirmed Problem Acquired hypothyroidism (762650274) Acquired hypothyroidism (E03.9) Active confirmed Problem 790487148 Mild intermitten t asthma without complication (J45.20) Active confirmed Problem 12983796 Lymphadenopathy (R59.1) Active confirmed Problem Attention deficit disorder (90935701) ADD (attention deficit disorder) (F90.0) Active confirmed Problem 511918497 Excoriation (skin-picking) disorder (F42.4) Active confirmed Problem 893293054 Irritable bowel syndrome with constipation (K58.1) Active confirmed Problem 87369423 Excessive sleepiness (G47.10) Active confirmed Problem 24500193 Missed period (N92.6) Active confirmed Problem Chronic interstitial cystitis (456714999) Interstitial cystitis (N30.10) Active confirmed Vital Signs Blood pressure diastolic 58 mm Hg 07/13/2024 triston ght is down 6 pounds since 02-28-24 Height 64 in 08/25/2024 Blood pressure systolic 104 mm Hg 07/13/2024 tristong ht is down 6 pounds since 02-28-24 Weight 153 lbs 07/13/2024 weight is down 6 pounds since 02-28-24 BMI 26.26 kg/m2 07/13/2024 weight is down 6 pounds since 02-28-24 Encounters Encounter Location Date Provider Diagnosis James Badillo MD [address] [place] [address] [address] [place] [id number] 08/25/2024 James Badillo Blood tests for rout ine general physical examination Z00.00 ; Acquired hypothyroidism E03.9 and Lymphocytosis D72.820 James Badillo MD [address] [place] [id number] 08/26/2023 James Badillo Mild intermittent asthma without complication J45.20 ; Annual physical exam Z00.00 ; Excoriation (skin-picking) disorder F42.4 ; Acquired hypothyroidism E03.9 ; Lymphocytosis D72.820 ; Lymphadenopathy R59.1 and Depression screening Z13.31 James Badillo MD [address] [place] [phone] 02/28/2024 James Badillo Mild intermittent asthma without complication J45.20 ; Irritable bowel syndrome with constipation K58.1 and Leg cramps R25.2 James Badillo MD [address] [place] [phone] 07/13/2024 James Badillo Muscle spasm M62.838 and Motion sickness, initial encounter T75.3XXA Assessments Encounter Date Diagnosis (ICD Code) Assessment Notes Treatment Notes Treatment Clinical Notes Section Notes 08/25/2024 Blood tests for routine general physical examination (ICD-10 - Z00.00) 08/26/2023 Mild intermittent asthma without complication (ICD-10 - J45.20) doing well, will continue current regiment 08/26/2023 Annual physical exam (ICD-10 - Z00.00) labs reviewed and discussed with patient 02/28/2024 Mild intermittent asthma without complication (ICD-10 - J45.20) using inhaler occasionally, will continue current regiment 02/28/2024 Irritable bowel syndrome with constipation (ICD-10 - K58.1) gets diarrhea with linzess. so takes it only on weekends when she is not working 07/13/2024 Muscle spasm (ICD-10 - M62.838) patient verbalized understandingof medicationand directions for use 07/13/2024 Motion sickness, initial encounter (ICD-10 - T75.3XXA) patient verbalized understandingof medicationand directions for use 08/25/2024 Acquired hypothyroidism (ICD-10 - E03.9) 08/26/2023 Excoriation (skin-picking) disorder (ICD-10 - F42.4) doing well, will continue to monitor 02/28/2024 Leg cramps (ICD-10 - R25.2) to try stretching before bed 08/25/2024 Lymphocytosis (ICD-10 - D72.820) 08/26/2023 Acquired hypothyroidism (ICD-10 - E03.9) tsh 08/26/2023 Lymphocytosis (ICD-10 - D72.820) chronic, will continue to monitor 08/26/2023 Lymphadenopathy (ICD-10 - R59.1) chronic and no change no treatment needed 08/26/2023 Depression screening (ICD-10 - Z13.31) Plan Of Treatment Pending Test Test Name Order Date XR CHEST 2 VIEW PA & LAT 02/14/2023 XR FACE BONES 02/12/2017 XR GI SERIES 11/07/2015 Urine Microscopic 08/25/2024 Comprehensive Met. Panel 08/25/2024 Lipid Panel 08/25/2024 TSH reflex Free T4 08/25/2024 UA ClnCatch+Micro w/rflx Cult 08/25/2024 Next Appt Details Provider Name:James vasquez, 09/01/2024 01:00:00 PM, [address], [address], [place], [place], [phone], Insurance Providers Payer Name Payer Address Payer Phone Subscriber Number Group Number Insured Name Patient Relationship to Insured Coverage Start Date Coverage End Date [employer] [address] [place], [place] [id number] Rhianna Garcia Self - patient is the insured [address] [place] [address] [id number] Rhianna Garcia Self - patient is the insured 3 Medical (General) History Medical History History ICD Code had leep done 08/16 which was reported to be better than expected flu vac scheduled at work 01/19 Lymphocytosis D72.820 Lymphocytosis E78.00 Elevated LDL cholesterol level F17.200 Tobacco use disorder Current smoker F17.200 Current smoker
--- OUTSIDE RECORDS SUMMARY | 2024-08-25 12:56 | XMS_ITS ---
Author Organization James Badillo MD Address [address] [place] [phone] Care Team Providers Care Bundle Helper Name Role Phone James Badillo Primary Care Provider Allergies Allergen (clinical drug ingredient) Drug/Non Drug Allergy documented on EMR Reaction Allergy Type Onset Date Status short acting generic adderall (uncoded) throat swelling Allergy Active REASON FOR VISIT 6 month Medications Medication SIG (Take, Route, Frequency, Duration) Notes Start Date End Date Status Linzess 72 MCG TAKE 1 CAPSULE BY MOUTH EVERY DAY 30 MINUTES BEFORE THE FIRST MEAL OF THE DAY ON EMPTY STOMACH Active Adderall XR 30 MG 1 capsule every morning Orally Once a day Active ProAir HFA 108 (90 Base) MCG/ACT 2 puffs as needed Inhalation every 4 hrs 02/12/2017 Active Wellbutrin XL 300 MG 1 tablet in the morning Orally Once a day for 30 day(s) Not-Taking Seasonale 0.15-0.03 MG 1 tablet Orally O nce a day for 91 day(s) Active Adderall 10 MG 1 tablet in the morning Orally Once a day Not-Taking Wellbutrin XL 150 MG 1 tablet in the morning Orally Once a day for 30 day(s) Not-Taking Zithromax Z-Paolo 250 MG 2 tablet on the irst day, then 1 tablet daily for 4 days Orally Once a day for 5 day(s) 02/05/2023 Not-Taking Benzonatate 100 MG 1 capsule as needed Orally Three times a day Not-Taking Ventolin HFA 108 (90 Base) MCG/ACT 2 puffs as needed Inhalation every 4 hrs for 30 days 04/22/2015 Not-Taking predniSONE 10 MG 1 tablet with food o r milk Orally 4 tabs for 3 days,3tabs for 3 days, 2 tabs for 3 days, and 1 tab for 3 days for 14 days 02/05/2023 Not-Taking Levothyroxine Sodium 50 MCG TAKE 1 TABLET BY MOUTH EVERY DAY IN THE MORNING ON EMPTY STOMACH for 90 Active Vital Signs Height 64 in 02/28/2024 Weight 159 lbs 02/28/2024 BMI 27.29 kg/m2 02/28/2024 Encounters Encounter Location Date Provider Diagnosis James Badillo MD [address] [place], [place] [phone] 02/28/2024 James Badillo Mild intermittent asthma without complication J45.20 ; Irritable bowel syndrome with constipation K58.1 and Leg cramps R25.2 Assessments Encounter Date Diagnosis (ICD Code) Assessment Notes Treatment Notes Treatment Clinical Notes Section Notes 02/28/2024 Mild intermittent asthma without complication (ICD-10 - J45.20) using inhaler occasionally, will continue current regiment 02/28/2024 Irritable bowel syndrome with constipation (ICD-10 - K58.1) gets diarrhea with linzess. so takes it only on weekends when she is not working 02/28/2024 Leg cramps (ICD-10 - R25.2) to try stretching before bed Plan Of Treatment Medication Medication Name Sig Start Date Stop Date Notes Linzess 72 MCG TAKE 1 CAPSULE BY [facility] EVERY DAY 30 MINUTES BEFORE THE FIRST MEAL OF THE DAY ON EMPTY STOMACH ProAir HFA 108 (90 Base) MCG/ACT 2 puffs as needed Inhalation every 4 hrs 02/12/2017 Treatment Notes Assessment Notes Mild intermittent asthma wit hout complication using inhaler occasionally, will continu e current regiment Irritable bowel syndrome with constipati on gets diarrhea with linzess. so takes it only on weekends when she is not working Leg cramps to try stretching be fore bed Next Appt Details Provider Name:James vasquez, 09/01/2024 01:00:00 PM, [address], [address], [place], [place], [phone], Progress Notes * Francisca BANGURA: [birth year] (39 yo F)Acc No.[id number]:02/28/2024 Progress Notes Patient:?Rhianna Bangura Provider:?James Badillo MD :1985???Age:39 Y???Sex:Female D ate:02/28/2024 Address:[address] [place] [address] Subjective: * Chief Complaints: * ???6 month * HPI: ???Symptom(s):? patient s a 39 yo female here for 6 month follow up. has a new job.stopped her wellbutrin 2 months ago. is doing fine without it. feels good. * ROS:?General/Constitutional:?Denies?Chills.?Denies?Fatigue.?Denies?Fever.?Denies?Headache.?ENT:?Patient denies?decreased sense of smell, any loss of taste, sore throat.?Denies?Sore throat.?Respiratory:?Denies?Cough.?Denies?Shortness of breath at rest.?Denies?Shortness of breath with exertion.?Gastrointestinal:?Denies?Diarrhea.?Denies?Nausea.?Musculoskeletal:?Patient denies?muscle aches.?Peripheral Vascular:?Patient denies?red and blue toes.? * Medical History:? * Surgical History:? * Hospitalization/Major Diagno stic Procedure:? * Medications:?TakingSeasonale 0.15-0.03 MG Tablet 1 tablet Orally Once a dayAdderall XR 30 MG Capsule Extended Release 24 Hour 1 capsule every morning Orally Once a dayProAir HFA 108 (90 Base) MCG/ACT Aerosol Solution 2 puffs as needed Inhalation every 4 hrsLinzess 72 MCG Capsule TAKE 1 CAPSULE BY MOUTH EVERY DAY 30 MINUTES BEFORE THE FIRST MEAL OF THE DAY ON EMPTY STOMACH Levothyroxine Sodium 50 MCG Tablet TAKE 1 TABLET BY MOUTH EVERY DAY IN THE MORNING ON EMPTY STOMACH Taking Seasonale 0.15- 0.03 MG Tablet 1 tablet Orally Once a dayTaking Adderall XR 30 MG Capsule Extended Release 24 Hour 1 capsule every morning Orally Once a dayTaking ProAir HFA 108 (90 Base) MCG/ACT Aerosol Solution 2 puffs as needed Inhalation every 4 hrsTaking Linzess 72 MCG Capsule TAKE 1 CAPSULE BY MOUTH EVERY DAY 30 MINUTES BEFORE THE FIRST MEAL OF THE DAY ON EMPTY STOMACH Taking Levothyroxine Sodium 50 MCG Tablet TAKE 1 TABLET BY MOUTH EVERY DAY IN THE MORNING ON EMPTY STOMACH Not-Taking/PRNWellbutrin XL 300 MG Tablet Extended Release 24 Hour 1 tablet in the morning Orally Once a daypredniSONE 10 MG Tablet 1 tablet with food or milk Orally 4 tabs for 3 days,3tabs for 3 days, 2 tabs for 3 days, and 1 tab for 3 daysBenzonatate 100 MG Capsule 1 capsule as needed Orally Three times a dayZithromax Z-Paolo 250 MG Tablet 2 tablet on the first day, then 1 tablet daily for 4 days Orally Once a dayAdderall 10 MG Tablet 1 tablet in the morning Orally Once a dayWellbutrin XL 150 MG Tablet Extended Release 24 Hour 1 tablet in the morning Orally Once a dayVentolin HFA 108 (90 Base) MCG/ACT Aerosol Solution 2 puffs as needed Inhalation every 4 hrsMedication List reviewed and reconciled with the patientNot-Taking/PRN Wellbutrin XL 300 MG Tablet Extended Release 24 Hour 1 tablet in the morning Orally Once a dayNot-Taking/PRN predniSONE 10 MG Tablet 1 tablet with food or milk Orally 4 tabs for 3 days,3tabs for 3 days, 2 tabs for 3 days, and 1 tab for 3 daysNot-Taking/PRN Benzonatate 100 MG Capsule 1 capsule as needed Orally Three times a dayNot-Taking/PRN Zithromax Z-Paolo 250 MG Tablet 2 tablet on the first day, then 1 tablet daily for 4 days Orally Once a dayNot-Taking/PRN Adderall 10 MG Tablet 1 tablet in the morning Orally Once a dayNot-Taking/PRN Wellbutrin XL 150 MG Tablet Extended Release 24 Hour 1 tablet in the morning Orally Once a dayNot-Taking/PRN Ventolin HFA 108 (90 Base) MCG/ACT Aerosol Solution 2 puffs as needed Inhalation every 4 hrsMedication List reviewed and reconciled with the patient * Allergies:?short acting gene aura adderall: throat swellingyes[Allergies Verified] Objective: * Vitals:?Ht: 64, Wt:159, BMI: 27.29, Wt-k.12. * Examination: ???General Examination: ?GENERAL APPEARANCE:?alert, well hydrated, in no distress.?HEAD:?normocephalic.?SKIN:?good turgor.?HEART:?regular rate and rhythm , no murmurs, rubs, gallops.?LUNGS:?no wheezes, rales, rhonchi , good air movement , clear to auscultation bilaterally.?ABDOMEN:?soft, nontender, nondistended.? Assessment: * Assessment: 1.?Mild intermittent asthma without complication - J45.20?2.?Irritable bowel syndrome with constipation - K58.1?3.?Leg cramps - R25.2? Plan: * Treatment: 2.?Irritable bowel syndrome with constipation? Continue Linzess Capsule, 72 MCG, TAKE 1 CAPSULE BY MOUTH EVERY DAY 30 MINUTES BEFORE THE FIRST MEAL OF THE DAY ON EMPTY STOMACH.?? Notes: gets diarrhea with linzess. so takes it only on weekends when she is not working?? 3.?Leg cramps? Notes: to try stretching before bed?? * Procedure Codes:? * * Sign off status: Completed true * Provider:?James Badillo MD Date:?1 04/29/2023 Generated for Bhavna epstein/Sarah/eTteeteesmitting on:?08/25/2024 12:55 PM EDT History and Physical Notes * HPI (History of Present Illness) Category Sub-Category Detail Notes Category Not es Symptom(s) patient s a 39 yo female here for 6 month follow up. has a new job.stopped her wellbutrin 2 months ago. is doing fine without it. feels good Examination Category Sub-Category Detail Notes Category Not es General Examination GENERAL APPEARANCE: alert, w ell hydrated, in no distress HEAD: normocephalic HEART: regular rate and rhy thm , no murmurs, rubs, gallops LUNGS: no wheezes, rales, r honchi , good air movement , clear to auscultation bilaterally ABDOMEN: soft, nontender, non distended SKIN: good turgor
--- OUTSIDE RECORDS SUMMARY | 2024-08-25 12:56 | XMS_ITS | Encounter Summary ---
Author Organization [facility] Address [address] [place] [address] Care Team Providers Care Deputy Chief Counsel Name Role Phone James Badillo MD Primary Care Provider Genet vailable Encounter Details Date Type Department Care Team Description 11/05/2014 [facility] Report Medical Records [address] [place] [address] Abstract, Provider Social History Tobacco Use Types Packs/Day Years Used Date Smoking Tobacco: Never Assessed Sex Assigned at Date Recorded Not on file documented as of this encounter Plan of Treatment Not on file documented as of this encounter Visit Diagnoses Not on filedocumented in this encounter Care Teams Deputy Chief Counsel Relationship Specialty Start Date End Date James Badillo MD PCP - General Internal Medicine 09/27/14 documented as of this encounter
--- OUTSIDE RECORDS SUMMARY | 2024-08-25 12:56 | XMS_ITS ---
Author Organization James Badillo MD Address [address] [place] [phone] Care Team Providers Care Garment Fitter Name Role Phone James Badillo Primary Care Provider Allergies Allergen (clinical drug ingredient) Drug/Non Drug Allergy documented on EMR Reaction Allergy Type Onset Date Status short acting generic adderall (uncoded) throat swelling Allergy Active REASON FOR VISIT NECK, SHOULDER PAIN left x 1 month no injury Medications Medication SIG (Take, Route, Frequency, Duration) Notes Start Date End Date Status Wellbutrin XL 300 MG 1 tablet in the morning Orally Once a day for 30 day(s) Not-Taking Linzess 72 MCG TAKE 1 CAPSULE BY MOUTH EVERY DAY 30 MINUTES BEFORE THE FIRST MEAL OF THE DAY ON EMPTY STOMACH Active ProAir HFA 108 (90 Base) MCG/ACT 2 puffs as needed Inhalation every 4 hrs 02/12/2017 Active Benzonatate 100 MG 1 capsule as needed [...] 3 days for 30 days 07/13/2024 Active Levothyroxine Sodium 50 MCG TAKE 1 TABLET BY MOUTH EVERY DAY IN THE MORNING ON EMPTY STOMACH for 90 Active Adderall XR 30 MG 1 capsule every morning Orally Once a day Active Seasonale 0.15-0.03 MG 1 tablet Orally O nce a day for 91 day(s) Active Nortriptyline HCl 10 MG/5ML 5 mL at bedtime Orally Once a day Active Meloxicam 15 MG 1 tablet Orally Once a day for 30 day(s) 07/13/2024 Active Cyclobenzaprine HCl 5 MG 1 tablet Orally twice a day as needed for 10 days 07/13/2024 Active Ventolin HFA 108 (90 Base) MCG/ACT 2 puffs as needed Inhalation every 4 hrs for 30 days 04/22/2015 Not-Taking Wellbutrin XL 150 MG 1 tablet in the morning Orally Once a day for 30 day(s) Not-Taking Adderall 10 MG 1 tablet in the morning Orally Once a day Not-Taking Zithromax Z-Paolo 250 MG 2 tablet on the day, then 1 tablet daily for 4 days Orally Once a day for 5 day(s) 02/05/2023 Not-Taking Vital Signs Blood pressure systolic 104 mm Hg 07/14/19 25 Blood pressure diastolic 58 mm Hg 025 Height 64 in 07/13/2024 Weight 153 lbs 07/13/2024 BMI 26.26 kg/m2 07/13/2024 weight is down 6 pounds [facility] 02-27-24 Encounters Encounter Location Date Provider Diagnosis James Badillo MD [address] [place] [address] [address] [place], [place] [phone] 07/13/2024 James Badillo Muscle spasm M62.838 and Motion sickness, initial encounter T75.3XXA Assessments Encounter Date Diagnosis (ICD Code) Assessment Notes Treatment Notes Treatment Clinical Notes Section Notes 07/13/2024 Muscle spasm (ICD-10 - M62.838) patient verbalized understandingof medicationand directions for use 07/13/2024 Motion sickness, initial encounter (ICD-10 - T75.3XXA) patient verbalized understandingof medicationand directions for use Plan Of Treatment Medication Medication Name Sig Start Date Stop Date Notes Scopolamine 1 MG/3DAYS 1 patch to skin b ehind the ear as needed Transdermal every 3 days for 30 days 07/13/2024 Meloxicam 15 MG 1 tablet Orally Once a day for 30 day(s) 07/13/2024 Cyclobenzaprine HCl 5 MG 1 tablet Orally twice a day as needed for 10 days 07/13/2024 Treatment Notes Assessment Notes Muscle spasm patient verbalized u nderstandingof medicationand directions for use Motion sickness, initial encounter patie nt verbalized understandingof medicationand directions for use Next Appt Details Provider Name:James Lombardo ier, 09/01/2024 01:00:00 PM, [address], [address], [place], [place], [phone], Progress Notes * Rhianna BANGURADOB: [birth year] (39 yo F)Acc No.[id number]:07/13/2024 Progress Notes Patient:?Rhianna BANGURA Provider:?James Badillo MD :1985???Age:39 Y???Sex:Female D ate:07/13/2024 Address:[address] [place], [place] [phone] Subjective: * Chief Complaints: * ???NECK, SHOULDER PAIN left x 1 month no injury * HPI: ???Symptom(s):?patient is a 39 yo female wityh complaint of neck and shoulder pain/ HAD PAIN BETWEEN SHOULDER BLADES AND NOW? HAS PAIN IN NECK IF SHE TURNS HEAD. no radiation down arm. * ROS:?General/Constitutional:?Denies?Chills.?Denies?Fatigue.?Denies?Fever.?Denies?Headache.?ENT:?Denies?Sore throat.?Respiratory:?Denies?Cough.?Denies?Shortness of breath at rest.?Denies?Shortness of breath with exertion.?Gastrointestinal:?Denies?Diarrhea.?Denies?Nausea.? * Medical History:? * Surgical History:? * Hospitalization/Major Diagno stic Procedure:? * Medications:?TakingNortripty line HCl 10 MG/5ML Solution 5 mL at bedtime Orally Once a day Seasonale 0.15-0.03 MG Tablet 1 tablet Orally Once a day Adderall XR 30 MG Capsule Extended Release 24 Hour 1 capsule every morning Orally Once a day Levothyroxine Sodium 50 MCG Tablet TAKE 1 TABLET BY MOUTH EVERY DAY IN THE MORNING ON EMPTY STOMACH ProAir HFA 108 (90 Base) MCG/ACT Aerosol Solution 2 puffs as needed Inhalation every 4 hrs Linzess 72 MCG Capsule TAKE 1 CAPSULE BY MOUTH EVERY DAY 30 MINUTES BEFORE THE FIRST MEAL OF THE DAY ON EMPTY STOMACH Taking Nortriptyline HCl 10 MG/5ML Solution 5 mL at bedtime Orally Once a day Taking Seasonale 0.15-0.03 MG Tablet 1 tablet Orally Once a day Taking Adderall XR 30 MG Capsule Extended Release 24 Hour 1 capsule every morning Orally Once a day Taking Levothyroxine Sodium 50 MCG Tablet TAKE 1 TABLET BY MOUTH EVERY DAY IN THE MORNING ON EMPTY STOMACH Taking ProAir HFA 108 (90 Base) MCG/ACT Aerosol Solution 2 puffs as needed Inhalation every 4 hrs Taking Linzess 72 MCG Capsule TAKE 1 CAPSULE BY MOUTH EVERY DAY 30 MINUTES BEFORE THE FIRST MEAL OF THE DAY ON EMPTY STOMACH Not-Taking/PRNWellbutrin XL 300 MG Tablet Extended Release 24 Hour 1 tablet in the morning Orally Once a day predniSONE 10 MG Tablet 1 tablet with food or milk Orally 4 tabs for 3 days,3tabs for 3 days, 2 tabs for 3 days, and 1 tab for 3 days Benzonatate 100 MG Capsule 1 capsule as needed Orally Three times a day Zithromax Z-Paolo 250 MG Tablet 2 tablet on the first day, then 1 tablet daily for 4 days Orally Once a day Adderall 10 MG Tablet 1 tablet in the morning Orally Once a day Wellbutrin XL 150 MG Tablet Extended Release 24 Hour 1 tablet in the morning Orally Once a day Ventolin HFA 108 (90 Base) MCG/ACT Aerosol Solution 2 puffs as needed Inhalation every 4 hrs Medication List reviewed and reconciled with the patientNot-Taking/PRN Wellbutrin XL 300 MG Tablet Extended Release 24 Hour 1 tablet in the morning Orally Once a day Not-Taking/PRN predniSONE 10 MG Tablet 1 tablet with food or milk Orally 4 tabs for 3 days,3tabs for 3 days, 2 tabs for 3 days, and 1 tab for 3 days Not-Taking/PRN Benzonatate 100 MG Capsule 1 capsule as needed Orally Three times a day Not-Taking/PRN Zithromax Z-Paolo 250 MG Tablet 2 tablet on the first day, then 1 tablet daily for 4 days Orally Once a day Not-Taking/PRN Adderall 10 MG Tablet 1 tablet in the morning Orally Once a day Not-Taking/PRN Wellbutrin XL 150 MG Tablet Extended Release 24 Hour 1 tablet in the morning Orally Once a day Not-Taking/PRN Ventolin HFA 108 (90 Base) MCG/ACT Aerosol Solution 2 puffs as needed Inhalation every 4 hrs Medication List reviewed and reconciled with the patient * Allergies:?short acting gene aura adderall: throat swellingyes[Allergies Verified] Objective: * Vitals:?Ht: 64, Wt: 153, BMI :26.26, BP:104/58, Wt-k.4. weight is down 6 pounds since 02-28-24. * Examination: ???General Examination: ?GENERAL APPEARANCE:?alert, well hydrated, in no distress.?HEAD:?normocephalic. has normal range of motion. non tender to palpate. normal dtr s.? Assessment: * Assessment: 1.?Muscle spasm - M62.838 (P rimary)???2.?Motion sickness, initial encounter - T75.3XXA??? Plan: * Treatment: 2.?Motion sickness, initial encounter? Start Scopolamine Patch 72 Hour, 1 MG/3DAYS, 1 patch to skin behind the ear as needed, Transdermal, every 3 days, 30 days, 10, Refills 1.?? Notes: patient verbalized understandingof medicationand directions for use?? * Procedure Codes:? * * Sign off status: Completed true * Provider:?James Badillo MD Date:?0 07/13/2024 Generated for Bhavna epstein/Sarah/eTteeteesmitting on:?08/25/2024 12:55 PM EDT History and Physical Notes * HPI (History of Present Illness) Category Sub-Category Detail Notes Category Not es Symptom(s) patient is a [address] [facility] complaint of neck and shoulder pain/ HAD PAIN BETWEEN SHOULDER BLADES AND NOW HAS PAIN IN NECK IF SHE TURNS HEAD. no radiation down arm. Examination Category Sub-Category Detail Notes Category Not es General Examination GENERAL APPEARANCE: alert, w ell hydrated, in no distress HEAD: normocephalic. has n ormal range of motion. non tender to palpate. normal dtr s
--- OUTSIDE RECORDS SUMMARY | 2024-08-25 12:56 | XMS_ITS ---
Author Organization James Badillo MD Address [address] [place] [phone] Care Team Providers Care Floral Specialist Name Role Phone James Badillo Primary Care Provider [phone] Results Component Value Reference Range Notes Complete Blood Count Auto Di ff Reviewed date:08/25/2024 12:52:13 PM Interpretation: Performing Lab:[facility], [address] [place] [phone] Notes/Report: White Blood Count 6.9 4.8-10.8 X10*3/uL [...] X10*3/uL NRBC Abs Auto 0.000 0.0-0.012 X10*3/uL REASON FOR VISIT yearly fasting labs Vital Signs Height 64 in 08/25/2024 Encounters Encounter Location Date Provider Diagnosis James Badillo MD [address] [place] [address] Drive [address] [place] [phone] 08/25/2024 James Badillo Blood tests for routine general physical examination Z00.00 ; Acquired hypothyroidism E03.9 and Lymphocytosis D72.820 Assessments Encounter Date Diagnosis (ICD Code) Assessment Notes Treatment Notes Treatment Clinical Notes Section Notes 08/25/2024 Blood tests for routine general physical examination (ICD-10 - Z00.00) 08/25/2024 Acquired hypothyroidism (ICD-10 - E03.9) 08/25/2024 Lymphocytosis (ICD-10 - D72.820) Plan Of Treatment Pending Test Test Name Order Date Urine Microscopic 08/25/2024 Comprehensive Met. Panel 08/25/2024 Lipid Panel 08/25/2024 TSH reflex Free T4 08/25/2024 Next Appt Details Provider Name:James Lombardo ier, 09/01/2024 01:00:00 PM, [address] [place] [address] Drive, [address], [place], [place], [phone], Progress Notes * Rhianna BANGURADOB: [birth year] (39 yo F)Acc No.[id number]:08/25/2024 Progress Note Patient:?Rhianna BANGURA Provider:?James Badillo MD :1985???Age:39 Y???Sex:Female D ate:08/25/2024 Address:[address] [place], [place] [phone] Subjective: * Chief Complaints: * ???1. Yearly fasting labs. * Medical History:? Objective: * Vitals:?Ht: 64. Assessment: * Assessment: 1.?Blood tests for routine g eneral physical examination - Z00.00 (Primary)???2.?Acquired hypothyroidism - E03.9???3.?Lymphocytosis - D72.820??? Plan: * Treatment: 2.?Acquired hypothyroidism?LAB: Urine Microscopic ?LAB: Comprehensive Met. Panel ?LAB: Lipid Panel ?LAB: TSH reflex Free T4 ?LAB: Complete Blood Count Auto Diff (Collection Date & Time - 08/25/2024 07:00 AM) 3.?Lymphocytosis?LAB: Urine Microscopic ?LAB: Comprehensive Met. Panel ?LAB: Lipid Panel ?LAB: Complete Blood Count Auto Diff (Collection Date & Time - 08/25/2024 07:00 AM) * * The named appointment provid er may or may not be the originator of this progress note, and it is not deemed complete until electronically signed by the appointment provider. Sign off status: Pending * Provider:?James Badillo MD Date:?0 08/25/2024 Generated for Bhavna epstein/Sarah/eTransmitting on:?08/25/2024 12:55 PM EDT
--- OUTSIDE RECORDS SUMMARY | 2024-08-25 12:56 | XMS_ITS | Patient Health Record ---
Author Organization [facility] Address [address] [place] [address] Care Team Providers Care Hand Spring Repairer Name Role Phone James Badillo MD Primary Care Provider Matthew Mckeon Unavailable [phone] Allergies Allergen (clinical drug ingredient) Drug/Non Drug Allergy documented on EMR Reaction Allergy Type Onset Date Status acetaminophen Tylenol cramps Drug Allergy Act shelli aspirin aspirin cramps Drug Allergy Active motrin cramping, sensitive when taking daIily Drug Allergy Active Reason For Referral No Information Medications Medication SIG (Take, Route, Frequency, Duration) Notes Start Date End Date Status Levothyroxine Sodium 25 MCG 1 tablet in the morning on an empty stomach Orally Once a day Active fluvoxaMINE Maleate 50 MG Orally Not-Taking Hyoscyamine Sulfate ER 0.375 MG 1 tablet Orally every 12 hrs Not-Taking Adderall 10 MG 1 tablet in the morning Orally Once a day Not-Taking PROzac Active FLUoxetine HCl 20 MG 1 capsule in the morning Orally Once a day Not-Taking Wellbutrin XL 300 MG 1 tablet in the morning Orally Once a day Active Seasonal IC Orally control Acti ve Adderall XR 30 MG Orally Ac tive Social History Tobacco Use: Social History Observation Description Date Details (start date - stop date) Former Smoker NA - NA Tobacco Use/Smoking Question Answer Notes Are you a: former smoker Additional Findings: Tobacco Non-User Ex-cigaret te smoker Alcohol Screen Question Answer Notes Did you have a drink contain ing alcohol in the past year? Yes How often did you have a dri nk containing alcohol in the past year? Monthly or less (1 point) Points 1 Interpretation Negative Tobacco use other than smoking: Question Answer Notes Are you an other tobacco user? No Problems Problem Type SNOMED Code ICD Code Onset Dates Problem Status W/U Status Risk Notes Problem Acquired hallux valgus (75887798) Hallux valgus (acquired), left foot (M20.12) Active confirmed Problem Acquired hallux valgus (68586094) Hallux valgus (acquired), right foot (M20.11) Active confirmed Problem Raynaud''s disease without gangrene (I73.00) Active confirmed Plan Of Treatment Pending Test Test Name Order Date X ray : Foot, left 2V 02/01/2016 X ray : Foot, left 2V 06/19/2018 X ray : Foot, right 2V 06/19/2018 X ray : Foot, right 2V 02/01/2016 X ray : Foot, left 3V 05/06/2017 29558, [id number]-OHDTB/INJECT, JOINT/BURSA 0 09/26/2022 68597, U2038-VGYBE/INJECT, JOINT/BURSA 0 06/19/2018 71173, J0702- Neuroma/Injection 02/01/20 16 39811, J0702- Neuroma/Injection 02/29/20 16 Insurance Providers Payer Name Payer Address Payer Phone Subscriber Number Group Number Insured Name Patient Relationship to Insured Coverage Start Date Coverage End Date [facility] [address] [place] [address] [id number] Rhianna Garcia Self - patient is the insured Medical (General) History Medical History History ICD Code asthma Back,Hip,and Knee pain Depression Chicken pox Attention deficit disorder Obsessive-compulsive personality disorde r Irritable bowel syndrome Anxiety raynauds disease thyroid Interstitial cystitis Surgical History Surgery Date(Month/Year) appendectomy 03/2004
--- OUTSIDE RECORDS SUMMARY | 2024-08-25 12:56 | XMS_ITS | Clinical Summary ---
Author Organization [facility] Address [address] [place] [address] Care Team Providers Care Chemical Process Analyst Name Role Phone James Badillo MD Primary Care Provider Genet vailable Medications Medication Sig Dispensed Refills Start Date End Date Status fluoxetine (PROZAC) 20 MG capsule Take 2 Caps by mouth every morning. 180 Cap 0 08/20/2017 Active amphetamine-dextroamphe tamine (ADDERALL, 10MG,) 10 MG tabletIndications:Atten tion-deficit hyperactivity disorder, predominantly hyperactive type I QPM 30 Tab 0 03/31/2019 Active amphetamine-dextroamphe tamine (ADDERALL XR, 30MG,) 30 MG 24 hr capsuleIndications:Atte ntion-deficit hyperactivity disorder, predominantly hyperactive type Take 1 Cap by mouth every morning for 30 days. 30 Cap 0 03/31/2019 Active amphetamine-dextroamphe tamine (ADDERALL, 10MG,) 10 MG tabletIndications:Atten tion-deficit hyperactivity disorder, predominantly hyperactive type I QPM 30 Tab 0 03/31/2019 Active amphetamine-dextroamphe tamine (ADDERALL XR, 30MG,) 30 MG 24 hr capsuleIndications:Atte ntion-deficit hyperactivity disorder, predominantly hyperactive type Take 1 Cap by mouth every morning for 28 days. 30 Cap 0 03/31/2019 Active Active Problems Problem Noted Date Excoriation (skin-picking) disorder 12/2017 Depression 10/11/2014 Attention deficit hyperactivity disorder 10/11/2014 Social History Tobacco Use Types Packs/Day Years Used Date Smoking Tobacco: Never Assessed Sex Assigned at Date Recorded Not on file Plan of Treatment Health Maintenance Due Date Last Done Comments Covid-19 Vaccine (#1) 1985 TOBACCO CHECK/ADVISE 01/09/2004 BASELINE HEALTH EXAM 18-39 2005 DTAP/TDAP/TD (1 - Tdap) 2005 CHOLESTEROL SCREENING 2006 CERVICAL CANCER SCREENING 2007 BMI CHECK/ADVISE 04/08/2024 INFLUENZA (Season Ended) 2024 01/23/2017, 10/2015 PNEUMOCOCCAL VACCINE FOR HIG H RISK PATIENTS (#1) 2051 Care Teams Chemical Process Analyst Relationship Specialty Start Date End Date James Badillo MD PCP - General Internal Medicine 09/27/14
== END 2024-08-25 07:01 | disposition home or self-care (01) ==
LOC: HO.LNP 07:00
PROVIDERS: Visit Provider Internal Medicine
DX: Z00.00 Encounter for general adult medical examination without abnormal findings (principal); E03.9 Hypothyroidism, unspecified; D72.820 Lymphocytosis (symptomatic)
CPT/HCPCS: 80053; 80061; 81001; 84443; 85025